=== PATIENT | female | born 1955 | race Caucasian/White ===

== ENCOUNTER 2019-04-20 05:09 | Emergency (ER) | payer OTHER ==
[~2019-04-20] VITALS: Ht 165.1 cm; Wt 108.9 kg
[2019-04-20] MEDS ORDERED: ATORVASTATIN CA20 MG (05:43)
== END 2019-04-20 11:35 | disposition home or self-care (01) ==
LOC: ER 05:09
DX: R06.02 Shortness of breath (principal); B96.0 Mycoplasma pneumoniae [M. pneumoniae] as the cause of diseases classified elsewhere

== ENCOUNTER 2023-07-27 08:52 | Emergency (ER) | payer OTHER ==
[~2023-07-27] VITALS: Ht 165.1 cm; Wt 96.6 kg
[~2023-07-27 08:52] MED LIST: ATORVASTATIN CA20 MG
[2023-07-27] MEDS ORDERED: GABAPENTIN600 MG PO (09:14)
[2023-07-27] MEDS ORDERED: ONDANSETRON HCL 2 MG/ML VIAL IV STA (09:27)
[2023-07-27] MEDS ORDERED: 0.9 % SODIUM CHLORIDE 1,000 ML IV SCH (09:27)
[2023-07-27 09:41] LABS: HEMATOCRIT 39.5 % (36.0-45.00); HEMOGLOBIN 13.3 g/dL (12.0-15.00); MEAN CORPUSCULAR HEMOGLOBIN 29.1 pg (27.00-32.0); MEAN CORPUSCULAR HGB CONC 33.8 g/dl (32.0-36.0); PLATELET COUNT 268 K/uL (150-450); RED BLOOD COUNT 4.59 M/uL (4.00-6.00); RED CELL DISTRIBUTION WIDTH 14.9 % (11.5-14.5)
[2023-07-27 09:47] LABS: URINE APPEARANCE Turbid; URINE BILIRRUBIN Negative (NEGATIVE); URINE BLOOD Moderate; URINE COLOR Dark Yellow; URINE GLUCOSE Negative (NEGATIVE); URINE LEUKOCYTE Negative; URINE NITRATE Negative
[2023-07-27 09:53] LABS: URINE BACTERIA 6209.1 uL (0.0-1933); URINE EPITHELIAL CELLS 122.8 uL (0.0-38.8); URINE RBC 68.1 uL (0.0-20.8); URINE WBC 99.4 uL (0.0-23.2)
[2023-07-27 09:58] LABS: URINE PROTEIN 100 (NEGATIVE)
[2023-07-27 10:47] LABS: CALCIUM 9.5 mg/dL (8.5-10.1); CREATININE SERUM 0.79 mg/dL (0.55-1.02); GFR 72.37; POTASSIUM 3.46 mEq/L (3.5-5.1)
[2023-07-27 10:59] LABS: URINE CRYSTALS MANY /HPF
== END 2023-07-27 14:03 | disposition home or self-care (01) ==
LOC: ER 08:53
PROVIDERS: Emergency Medicine
DX: K52.89 Other specified noninfective gastroenteritis and colitis (principal); R11.10 Vomiting, unspecified; I10 Essential (primary) hypertension
CPT/HCPCS: 36415; 96365; 96366; 99282; J2405; J7030

== ENCOUNTER 2024-07-31 11:30 | Emergency (ER) | payer OTHER ==
[~2024-07-31] VITALS: Ht 165.1 cm; Wt 95.3 kg
[~2024-07-31 11:30] MED LIST changes: +GABAPENTIN600 MG PO
[2024-07-31] MEDS ORDERED: DARIFENACIN ER7.5 MG PO (12:21)
[2024-07-31] MEDS ORDERED: OZEMPIC1 MG/0.71 (12:22)
[2024-07-31 12:24] VITALS: BP 126/80; O2SAT 98
[2024-07-31] MEDS ORDERED: KETOROLAC TROMETHAMINE 30 MG VIAL IM ONE (14:45)
[2024-07-31] MEDS ORDERED: KETOROLAC TROMETHAMINE 30 MG VIAL ONE (14:53)
== END 2024-07-31 16:38 | disposition home or self-care (01) ==
LOC: ER 11:33
DX: M85.841 Other specified disorders of bone density and structure, right hand (principal); M89.30 Hypertrophy of bone, unspecified site